=== PATIENT | female | born 1975 | race Caucasian/White ===

== ENCOUNTER 2024-08-15 00:12 | Emergency (ER) | payer SELFPAY ==
[~2024-08-15] VITALS: Ht 154.9 cm; Wt 54.5 kg
[2024-08-15 00:22] VITALS: TEMP 97.5
[2024-08-15 02:11] VITALS: BP 157/88; PULSE 68; RESP 16; O2SAT 100
[2024-08-15] MEDS: IBUPROFEN 400 MG TABLET PO ONE (03:22)
[2024-08-15] MEDS: HYDROCODONE/ACETAMINOPHEN 5-325 MG TABLET PO ONE (03:22)
[2024-08-15] MEDS: AMOX TR/POT CLAV 875 MG/125 MG TABLET PO ONE (03:22)
[2024-08-15] MEDS ORDERED: IBUP-1506 PO (04:01)
[2024-08-15] MEDS ORDERED: HYDR-4072 PO (04:01)
[2024-08-15] MEDS ORDERED: AMOX-457 PO (04:01)
[2024-08-15] MEDS ORDERED: ACET-66 PO (04:04)
== END 2024-08-15 04:34 | disposition home or self-care (01) ==
LOC: EMS 00:12
DX: K02.9 Dental caries, unspecified (principal); K08.89 Other specified disorders of teeth and supporting structures; E11.9 Type 2 diabetes mellitus without complications; I10 Essential (primary) hypertension; Z59.71 Insufficient health insurance coverage; Z79.899 Other long term (current) drug therapy
CPT/HCPCS: 99284; Z7502; Z7610